=== PATIENT | female | born 1930 | race Caucasian/White ===

== ENCOUNTER 2016-09-09 11:17 | Day surgery (SDC) | payer MEDICARE, OTHER ==
[2016-09-02 14:57] LABS: HEMATOCRIT 35.9 % (36.0-48.0); HEMOGLOBIN 11.8 g/dL (12.0-16.0)
[2016-09-02 15:14] LABS: CHLORIDE, SERUM 105 MMOL/L (96-112); CO2 (CARBON DIOXIDE) 30 MMOL/L (24-34); CREATININE 0.84 MG/DL (0.55-1.02); GFR AFRICAN AMERICAN 73 ML/MIN (>=60); GFR NON AFRICAN AMERICAN 63 ML/MIN (>=60); POTASSIUM, SERUM 4.1 MMOL/L (3.5-5.3); SODIUM, SERUM 142 MMOL/L (135-148)
[2016-09-02 15:15] LABS: BUN (BLOOD UREA NITROGEN) 26 MG/DL (6-23); CALCIUM, SERUM 9.8 MG/DL (8.5-10.4); GLUCOSE, SERUM 114 MG/DL (60-99)
--- NOTE | ~2016-09-09 | OP ---
Record Of Operation [facility] [address] [place]. [address] NAME: FELY JOSUE : 32 STATUS : [place] [facility] [place] [facility] [place] PAT#: [id number] AGE: 86 ADM/REG DATE : 09/09/16 MR#: [id number] REPORT SERV DATE: 09/09/16 DICTATED BY: JUSTINE MENDEZ DATE: 09/09/16 REPORT STATUS : Draft TRANSCRIBED BY: LES DATE: 09/09/16 DATE OF PROCEDURE: 09/09/2016 PREOPERATIVE DIAGNOSIS: Right carpal tunnel syndrome. POSTOPERATIVE DIAGNOSIS: Right carpal tunnel syndrome. PROCEDURE: Right carpal tunnel release. PHYSICIAN: Justine Mendez M.D. EMBEDDED DEVELOPER: Niko Shoemaker. ANESTHESIA: Local MAC. ESTIMATED BLOOD LOSS: None. COMPLICATIONS: None. DISPOSITION: The patient tolerated the procedure well and was brought to recovery room in stable condition. PROCEDURE NOTE: The patient was brought to the operating room and placed in a supine position. After IV sedation was given, a pneumatic tourniquet was placed around the right proximal arm and a surgical timeout was performed. All were in agreement. The skin overlying the right wrist carpal tunnel region was prepped and 10 mL of 1% lidocaine plain was injected into the region to provide adequate local block. Afterwards, the right upper extremity distal to the tourniquet was prepped and draped in the usual sterile manner. An Esmarch was used to exsanguinate the extremity and tourniquet was inflated. A 15 blade scalpel was used to make a 3 to 4 cm longitudinal incision starting at the volar wrist crease and directed distally in line with the ring finger. After the skin was incised, the palmar fascia was identified, incised along the length of its fibers to reveal the underlying transverse carpal ligament. The entire transverse carpal ligament from its most proximal to its most distal border was then incised just radial to the hook of the hamate and afterwards adequate decompression was noted. The wound was irrigated and skin was closed with deep and running Monocryl suture. Steri-Strips and sterile dressing was applied. Tourniquet was released and the patient was ready be brought to recovery room in stable condition. RIKKI/LES Justine Mendez M.D. Record Of Operation [address] [address] NAME: FELY JOSUE : 32 STATUS : REG [facility] [place] [facility] [place] PAT#: [id number] AGE: 86 ADM/REG DATE : 09/09/16 MR#: [id number] REPORT SERV DATE: 09/09/16 DICTATED BY: JUSTINE MENDEZ DATE: 09/09/16 REPORT STATUS : Draft TRANSCRIBED BY: LES DATE: 09/09/16 / [id number] CC: Ketty Chambers M.D.
[~2016-09-09 11:17] MED LIST: ACET500CAP PO; ALEVE220 MG PO; ASAB PO; BENEFIBE5 PO; BENEFIBE6 PO; C5 PO; CALCIUM PO; CALTRA600D PO; COREG6 PO; DIGESTIVE ADVANTAGE PO; FIBER PO; FIBERCON PO; FOLIC ACID400 MC1 PO; FOSAMAX70 MG PO; HYDROCHLOROT12.5 MG PO; LISINOPRIL/HCTZ; LUTEIN1 CAP PO-DS; MINERALS PO; MOVE FREE; MOVE FREE PO; MOVE FREE ULTRA PO; NATURL FIBER68 % PO; NORCO1 TA1 PO; OXYCOD PO; PRESERVISION A1 EAC1 PO; PRESERVISION PO; PRILO PO; PRIN20 PO; PROTONIX PO; TAPAZOLE5 MG PO; TAZTIA X3 PO; TIAZA4 PO; ULTRAM50 PO; VITAMIN C100 MG PO; VITAMIN D1000 UNI1 PO; VITAMIN D31000 UNIT PO; WARFARIN PO; WHEAT DEXTRIN PO; ZESTORETIC PO; ZESTORETIC1 TAB PO; [UNRECOGNIZED DRUG - OTHER] PO; [UNRECOGNIZED DRUG - OTHER] PO; [UNRECOGNIZED DRUG - REMARK] PO
== END 2016-09-09 16:04 | disposition home or self-care (01) ==
LOC: SDC 11:17
PROVIDERS: Orthopaedic Surgery Hand Surgery
PROC: 01N50ZZ Release Median Nerve, Open Approach (ICD-10-PCS; principal; 2016-09-09 12:45)
DX: G56.01 Carpal tunnel syndrome, right upper limb (principal); I10 Essential (primary) hypertension; Z88.5 Allergy status to narcotic agent; I48.91 Unspecified atrial fibrillation; M19.90 Unspecified osteoarthritis, unspecified site; E03.9 Hypothyroidism, unspecified
CPT/HCPCS: 80048; 85014; 85018; 93005; J0690; J3010